=== PATIENT | female | born 1945 | race Caucasian/White ===

== ENCOUNTER 2016-07-19 13:45 | Outpatient (RCR) | payer BC ==
--- NOTE | 2016-07-06 14:45 | PT/OT/ST INITIAL EVALUATION ---
Department of Health and Human Services Form Approved Health Care Financing Administration OMB No. [id number] PLAN OF CARE/ASSESSMENT FOR OUTPATIENT REHABILITATION (Complete for Initial Claims Only) 1. PATIENT'S NAME Kylah Salazar 2. ACC # [id number] 3. HICN NA 4. PROVIDER NO. [id number] 5. TYPE: PT 6. PRIOR HOSPITALIZATION NA 7. PRIMARY DX Left hip and right foot pain 8. SECONDARY DX NA 9. ONSET DATE Approximately 1 month ago for the hips and 2 weeks ago for the heel. 10. REFERRAL DATE NA 11. SOC. DATE 06/26/2016 12. TIME OF EVAL 4:03 p.m. [address]YSICIAN Dr. Barrientos 13. CHARGES/UNITS NA 14. G CODES NA 15. PRIOR LEVEL OF FUNCTION; PERTINENT HISTORY (Prior therapy results, reason for referral.) S: Prior to therapy the patient did consent to today's evaluation and treatment. The patient is a 71-year-old female referred to physical therapy by Dr. Barrientos to address left hip pain and right foot pain. The patient does rate her overall and general health as good. The patient states the left hip pain started approximately 1 month ago and is staying about the same stating that "she is aware of it." Activities such as walking and standing over 30 minutes cause a dull ache in the low back and into her left hip. The patient performs piriformis stretching, which does seem to relieve the symptoms somewhat. The patient denies reports of groin pain. Most pain is located at her mid buttocks. This pain is at level of 5/10 and she is pain free 70% of the time. Relieving factors Include Aleve that she just started, which she thinks is helping. The right heal pain started approximately 2 weeks ago and is now bothering her significantly more than the left hip. The patient states 20 years ago she had an incident falling up the stairs causing bony structure changes in her right foot. The patient does see Dr. Rodrigues for this and does have a follow up with him Saturday following this evaluation. The patient is performing stretching activities at home, does wear orthotics in her shoes for this, and additionally sleeps with a night splint; however, nothing seems to be helping. The heel continues to hurt whenever she puts weight through it. Walking barefoot is not possible due to the pain. The patient states it feels like a stabbing sensation. Pain to the heel is at a level of 7 to 8/10 and is described a "hurt". Prior level of function: Includes the patient being unlimited in all activities including biking and walking for exercise. 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 Standing on concrete floors is significant worse than carpeted surfaces. After she had been sitting for a while, going to a standing position is significantly painful as well, which happens frequently at work. Therapy History: the patient has had no physical therapy for this condition. Obstacles to delivery of care are not observed. Diagnostic tests: No diagnostic tests have been performed at this time. Past medical history: Includes osteoarthritis Current medications: A list has been provided by the patient and is included in the chart. Patient's Goal: To be able to walk without pain. 16. INITIAL ASSESSMENT/SAFETY PRECAUTIONS/MEDICAL COMPLICATIONS (Level of function at start of care. Be specific, use objective measures, list problems.) O: APPEARANCE AND OBSERVATION: The patient presents to physical therapy ambulating with a significantly antalgic gait pattern with decreased stance on the right lower extremity. Upon observing her in a neutral posture, she has significant eversion located at bilateral ankles with pronation and flat feet, on the right side more so than the left. The patient additionally ambulates with increased left external rotation and increased valgus of the knees. The right foot does demonstrate a large bony prominence around the navicular and medial cuneiform area with anterior tibialis tendon being prominent. The patient is additionally point tender at the plantar fascia insertion on the calcaneus. SPECIAL TESTS: Include a positive left Trendelenburg test, negative LINDA test, and negative scour test and negative Tinel test on the right ankle. RANGE OF MOTION/FLEXIBILITY: Dorsiflexion on the right is to 3 degrees, on the left 9 degrees actively. STRENGTH: Throughout the left lower extremity knee and ankle are 5/5, hip abduction is 2+/5 and hip extension is 3/5. Throughout the right lower extremity hip abduction is 3/5, hip extension 3+/5, ankle motion and intrinsic motion 4/5. TODAY'S TREATMENT: Following the initial evaluation therapeutic exercise was performed and issued as a home exercise program with emphasis on strengthening of the hip musculature and supporting structures of the right ankle. Manual therapy techniques were then performed including joint mobilization through the hip, as well as an ASTYM treatment to the right lower extremity per ankle, knee and foot protocol. Vasopneumatic device with cold and compression was then performed throughout the left hip and right foot. The patient did report decreased pain following this treatment. 17. INITIAL POC: (Specify procedures, modalities, short and prison goals) A: The patient presents to physical therapy with diagnosis of right heel pain and left hip pain with resultant increased left hip instability, decreased right foot structure, increased pain in the left hip and right foot, decreased strength and decreased active range of motion of the right ankle. PROGNOSIS: The patient does have a good prognosis with regular therapy attendance and compliance with home exercise program. This patient is expected to benefit from physical therapy services in order to have decreased pain, increased strength to return to full job duties without limitations. This patient does likely have a heel spur developing on the right foot. OUTCOME ASSESSMENT: The Lower Extremity Functional Index scale which scored 27/80. SHORT TERM GOALS: 1. The patient to be independent and compliant with home exercise program in 1 week. 2. The patient with a 50% decrease in maximum right heel pain in 3 weeks to allow walking at work without limitations. 3. The patient with right active range of motion dorsiflexion of 8 degrees in 4 weeks to allow for normal gait mechanics. 4. The patient with left hip strength 4/5 throughout in 6 weeks to allow standing at least 1 hour to prepare a meal. 5. The patient with a Lower Extremity Functional Index score at least 50/80 in 6 weeks to allow walking for exercise without pain. INFORMED CONSENT: The diagnosis, prognosis, treatment plan, risks and expected outcomes were discussed with the patient and the patient did agree to today's established plan of care. P: Plan to treat the patient 2 times per week for 6 weeks in order to address left hip pain and right heel pain. Therapeutic treatments to include modalities to decrease pain and inflammation. Manual therapy techniques as indicated. Therapeutic exercise targeting active range of motion, strengthening, postural and hip stabilization activities, gait training, balance and proprioceptive training, and patient education and home exercise program to be advanced as warranted 18. FREQUENCY 2 times week 19. DURATION 6 weeks 20. FUNCTIONAL LEVEL (End of claim period) 21. PHYSICIAN SIGNATURE ? ON FILE OR ENTER HERE: 22. DATE: I certify the need for these services furnished under this plan of care and if for partial hospitalization. 23. CERTIFICATION FROM THROUGH FORM [id number]
== END 2016-09-03 13:16 | disposition home or self-care (01) ==
LOC: PT 13:45
PROVIDERS: ATTEND Family Medicine
DX: M25.552 Pain in left hip (principal)